=== PATIENT | male | born 1990 | race Hispanic/Latino ===

== ENCOUNTER 2017-11-12 00:56 | Emergency (ER) | payer SELFPAY ==
[2017-11-12] MEDS ORDERED: IBUPROFEN 400 MG TABLET ONE (01:23)
== END 2017-11-12 01:44 | disposition home or self-care (01) ==
LOC: EDH 00:56
DX: M25.562 Pain in left knee (principal)

== ENCOUNTER 2018-06-25 21:53 | Emergency (ER) | payer OTHER ==
[2018-06-25] MEDS ORDERED: MORPHINE SULFATE 2 MG/ML 1ML SYG ONE (22:27)
[2018-06-25] MEDS ORDERED: KETOROLAC TROMETHAMINE 60 MG/2 ML VIAL ONE (22:27)
[2018-06-25] MEDS ORDERED: TETANUS/DIPHTHERIA TOXOID [ADULT] 0.5 ML VIAL IM ONE (22:27)
== END 2018-06-25 23:23 | disposition home or self-care (01) ==
LOC: EDH 21:53
DX: S52.125A Nondisplaced fracture of head of left radius, initial encounter for closed fracture (principal); S20.419A Abrasion of unspecified back wall of thorax, initial encounter; V09.9XXA Pedestrian injured in unspecified transport accident, initial encounter; Y93.89 Activity, other specified; Y92.89 Other specified places as the place of occurrence of the external cause; Y99.8 Other external cause status
CPT/HCPCS: 29105; 73080; 90471; 90714; 96372 ×2; 99283; J1885

== ENCOUNTER 2020-05-22 17:08 | Emergency (ER) | payer SELFPAY ==
[2020-05-22] MEDS ORDERED: LIDOCAINE HCL 1% 20 ML VIAL ONE (17:20)
[2020-05-22 17:30] LABS: BASOPHILS % (AUTO) 0.4 % (0.0-5.0); EOSINOPHILS % (AUTO) 0.7 % (0.0-8.0); HEMATOCRIT 39.9 % (42-54); LYMPHOCYTES % (AUTO) 33.3 % (21.0-51.0); MEAN CORPUSCULAR HEMOGLOBIN 31.1 pg (27.0-33.0); MEAN CORPUSCULAR HGB CONC 34.8 g/dL (32.0-36.0); MEAN CORPUSCULAR VOLUME 89.3 fL (79-99); MONOCYTES % (AUTO) 7.2 % (3.0-13.0); PLATELET COUNT (AUTO) 287 K/uL (130-400); RED BLOOD CELL COUNT(AUTO) 4.47 MIL/uL (4.50-6.20); WHITE BLOOD COUNT (AUTO) 8.3 K/uL (4.8-10.8)
[2020-05-22] MEDS ORDERED: CEFAZOLIN SODIUM 1 GM VIAL ONE (17:34)
[2020-05-22] MEDS ORDERED: ONDANSETRON HCL 4 MG/2 ML VIAL ONE (17:34)
[2020-05-22] MEDS ORDERED: HYDROMORPHONE HCL 0.5 MG/0.5 ML ML ONE (17:35)
[2020-05-22] MEDS ORDERED: TETANUS/DIPHTHERIA TOXOID [ADULT] 0.5 ML VIAL IM ONE (17:35)
[2020-05-22] MEDS ORDERED: SODIUM CHLORIDE 0.9% 50 ML IV ONE (17:40)
[2020-05-22 17:42] LABS: CREATININE 1.2 mg/dL (0.5-1.5); POTASSIUM 3.7 mmol/L (3.5-5.1)
[2020-05-22 17:46] LABS: INR 0.92 (0.85-1.15)
[2020-05-22] MEDS ORDERED: NEOMY SULF/BACITRA/POLYMYXIN B 1 EACH PACKET TP ONE (19:08)
== END 2020-05-22 19:14 | disposition home or self-care (01) ==
LOC: EDH 17:08
DX: S61.411A Laceration without foreign body of right hand, initial encounter (principal); X58.XXXA Exposure to other specified factors, initial encounter; Y93.89 Activity, other specified; Y92.89 Other specified places as the place of occurrence of the external cause; Y99.8 Other external cause status
CPT/HCPCS: 12041; 36415; 73130; 80048; 85025; 85610; 85730; 90471; 90714; 96365; 96375; 99284; J0690; J1170; J2405

== ENCOUNTER 2020-05-31 07:04 | Emergency (ER) | payer SELFPAY | END 2020-05-31 07:57 | disposition home or self-care (01) | LOC: EDH 07:04 | DX: S61.411D Laceration without foreign body of right hand, subsequent encounter (principal); X58.XXXD Exposure to other specified factors, subsequent encounter | CPT/HCPCS: 99281 ==